=== PATIENT | male | born 1960 | race Caucasian/White ===

== ENCOUNTER 2018-03-16 19:24 | Emergency (ER) | payer OTHER, MEDICAID ==
[2018-03-16] MEDS: DEXAMETHASONE 10 MG/ML 1 ML INJ IM (21:10)
[2018-03-16] MEDS: KETOROLAC 60 MG INJ IM ×2 (21:15→22:10)
[2018-03-16] MEDS: DIAZEPAM 5 MG TAB PO (21:15)
== END 2018-03-16 22:35 | disposition home or self-care (01) ==
LOC: FTE 19:24
DX: M54.42 Lumbago with sciatica, left side (principal); F17.210 Nicotine dependence, cigarettes, uncomplicated
CPT/HCPCS: 72131; 96372; 99285-25

== ENCOUNTER 2018-10-14 21:23 | Emergency (ER) | payer OTHER ==
[2018-10-14 22:18] LABS: ADD MAN DIFF? NO
[2018-10-14 22:19] LABS: WHITE BLOOD COUNT 8.7 10^3/ul (4.8-10.8)
[2018-10-14 22:19] LABS: BASOPHILS % 0.3 % (0.0-2.0); EOSINOPHILS % 0.5 % (0.0-7.0); HEMATOCRIT 35.5 % (42.0-52.0); HEMOGLOBIN 11.9 g/dl (14.0-18.0); LYMPHOCYTES # 2.1 10^3/ul (0.8-2.9); LYMPHOCYTES % 24.2 % (15.0-51.0); MEAN CORPUSCULAR HEMOGLOBIN 29.4 pg (29.0-33.0); MEAN CORPUSCULAR HGB CONC 33.5 g/dl (32.0-37.0); MEAN CORPUSCULAR VOLUME 87.7 fl (82.0-101.0); MEAN PLATELET VOLUME 9.6 fl (7.4-10.4); MONOCYTE # 0.7 10^3/ul (0.3-0.9); MONOCYTES % 7.7 % (0.0-11.0); NEUTROPHIL # 5.7 10^3/ul (1.6-7.5); NEUTROPHILS % 65.8 % (39.0-77.0); PLATELET COUNT 436 10^3/UL (140-415); RED BLOOD COUNT 4.05 10^6/ul (4.70-6.10); RED CELL DISTRIBUTION WIDTH 13.2 % (11.5-14.5)
[2018-10-14] MEDS: morphine 4 MG/ML VIAL IV (22:19)
[2018-10-14] MEDS: ONDANSETRON 4 MG INJ IV (22:19)
[2018-10-14 22:22] LABS: INR 1.14; PROTIME 14.7 Sec (11.9-14.9); PT RATIO 1.1
[2018-10-14 22:23] LABS: PARTIAL THROMBOPLASTIN TIME 30.1 Sec (23.0-35.0)
[2018-10-14 22:25] LABS: ANION GAP 12 (5-13); BLOOD UREA NITROGEN 15 mg/dl (7-20); CARBON DIOXIDE 23 mmol/L (21-31); CHLORIDE 103 mmol/L (97-110); CREATININE 0.85 mg/dl (0.61-1.24); Estimated GFR > 60 mL/min (>60); GLUCOSE 116 mg/dl (70-220); SODIUM 138 mmol/L (135-144)
[2018-10-14] MEDS: SOD CHLORIDE 0.9% 100 ML (23:36)
[2018-10-14] MEDS: IOHEXOL 300MG/ML 150 ML BTL (23:36)
[2018-10-15] MEDS: HEPARIN 25000 UNITS/250 ML 250 ML IV (01:25)
[2018-10-15] MEDS: HEPARIN 1000 UNITS/ML 10 ML INJ IV ×2 (01:26→01:27)
[2018-10-15] MEDS ORDERED: HEPARIN 1000 UNITS/ML 10 ML INJ IV (07:00)
== END 2018-10-15 03:48 | disposition home or self-care (01) ==
LOC: E/R 21:23
DX: T82.868S Thrombosis due to vascular prosthetic devices, implants and grafts, sequela (principal); I97.89 Other postprocedural complications and disorders of the circulatory system, not elsewhere classified; D64.9 Anemia, unspecified; D47.3 Essential (hemorrhagic) thrombocythemia; I73.9 Peripheral vascular disease, unspecified; I10 Essential (primary) hypertension; F17.210 Nicotine dependence, cigarettes, uncomplicated; Y71.2 Prosthetic and other implants, materials and accessory cardiovascular devices associated with adverse incidents; Y77.2 Prosthetic and other implants, materials and accessory ophthalmic devices associated with adverse incidents; Z79.82 Long term (current) use of aspirin
CPT/HCPCS: 75635; 80048; 85025; 85610; 85730; 93005; 96374; 96375; 99285-25